=== PATIENT | female | born 1995 | race African-American/Black ===

== ENCOUNTER 2020-03-22 12:54 | Emergency (ER) | payer MEDICAID ==
[~2020-03-22] VITALS: Ht 175.3 cm; Wt 73.0 kg
[2020-03-22 15:55] VITALS: BP 120/70
== END 2020-03-22 15:55 | disposition home or self-care (01) ==
LOC: ER 12:54
DX: B34.9 Viral infection, unspecified (principal); Z20.828 Contact with and (suspected) exposure to other viral communicable diseases
CPT/HCPCS: 71045; 81025; 99283; C9803